=== PATIENT | male | born 1950 | race Caucasian/White ===

== ENCOUNTER 2016-11-18 10:47 | Outpatient (CLI) | payer OTHER ==
--- NOTE | 2016-11-18 14:41 | XRAY Report ---
THREE-VIEW CERVICAL SPINE: 11/18/2016 CLINICAL INDICATION: Neck and back pain. FINDINGS: AP, lateral, odontoid views of the cervical spine demonstrate mild degenerative disk disea se, with small anterior osteophytes. There is no evidence of fracture. The prevertebral soft tissue s are unremarkable. IMPRESSION: MILD DEGENERATIVE DISK DISEASE. JOB #: [id number] EXT JOB #:[id number]
--- NOTE | 2016-11-18 14:50 | XRAY Report ---
THREE-VIEW LUMBAR SPINE: 11/18/2016 CLINICAL INDICATION: Back pain. FINDINGS: AP, lateral, coned-down views of the lumbar spine demonstrate degenerative disk and facet disease. There is partial lumbarization of S1. There is no evidence of acute fracture or subluxatio n. IMPRESSION: DEGENERATIVE DISK DISEASE. :9 JOB #: [id number] EXT JOB #:[id number]
== END 2016-11-18 10:48 | disposition home or self-care (01) ==
LOC: DI.S 10:47
PROVIDERS: ATTEND Chiropractor
DX: M50.30 Other cervical disc degeneration, unspecified cervical region (principal); M51.36 Other intervertebral disc degeneration, lumbar region; M43.06 Spondylolysis, lumbar region; M99.01 Segmental and somatic dysfunction of cervical region; S13.9XXA Sprain of joints and ligaments of unspecified parts of neck, initial encounter
CPT/HCPCS: 72040; 72100

== ENCOUNTER 2019-01-10 07:41 | Outpatient (CLI) | payer OTHER ==
--- NOTE | 2019-01-10 13:07 | XRAY Report ---
Reason: XRAY Procedure Date: 01/10/2019 Accession Number: [id number] / [id number] Procedure: XR - Cervical Spine w/Flex/Ext CPT Code: FULL RESULT: EXAM: CERVICAL SPINE RADIOGRAPHY EXAM DATE: 01/10/2019 08:01 AM. CLINICAL HISTORY: XRAY. COMPARISONS: None. TECHNIQUE: 5 views. FINDINGS: Alignment: There is grade 1 anterior listhesis of C2 on C3 measuring 2 mm in neutral position, 3 mm in flexion and 3 mm in extension. There is grade 1 posterior listhesis of C3 on C4 measuring 3 mm in neutral position no listhesis in flexion and 4 mm of listhesis in extension. Bones: The cervical vertebral bodies and posterior elements are well-visualized from the skull base through C7-T1. No fractures or bone lesions. Disks: Mild degenerative disk disease at C5-C6. Facets: No degenerative disease. Neural Foramina: The neural foramina have bony patency bilaterally. Soft Tissues: Normal. No prevertebral soft tissue swelling. The visualized lung apices are clear. IMPRESSION: 1. There is grade 1 anterior listhesis of C2 on C3 measuring 2 mm in neutral position, 3 mm in flexion and 3 mm in extension. 2. There is grade 1 posterior listhesis of C3 on C4 measuring 3 mm in neutral position no listhesis in flexion and 4 mm of listhesis in extension. 3. Mild degenerative disk disease at C5-C6. [facility]
== END 2019-01-10 07:42 | disposition home or self-care (01) ==
LOC: DI 07:41
PROVIDERS: ATTEND Chiropractor
DX: S13.8XXA Sprain of joints and ligaments of other parts of neck, initial encounter (principal); M99.11 Subluxation complex (vertebral) of cervical region; M99.1 Subluxation complex (vertebral); M50.30 Other cervical disc degeneration, unspecified cervical region
CPT/HCPCS: 72052

== ENCOUNTER 2021-01-26 08:05 | Outpatient (CLI) | payer OTHER ==
[2021-01-26 14:39] LABS: BASOPHILS # (AUTO) 0.1 10^3/uL (0.0-0.1); BASOPHILS % (AUTO) 1.4 %; EOSINOPHILS # (AUTO) 0.3 10^3/uL (0.0-0.7); EOSINOPHILS % (AUTO) 5.8 %; HGB - HEMOGLOBIN 14.7 g/dL (14.0-18.0); LYMPHOCYTES # (AUTO) 1.5 10^3/uL (1.5-3.5); LYMPHOCYTES % (AUTO) 35.2 %; MEAN CORPUSCULAR HEMOGLOBIN 29.6 pg (27.0-31.0); MEAN CORPUSCULAR HGB CONC 32.7 g/dL (32.0-36.0); MEAN CORPUSCULAR VOLUME 90.5 fL (80.0-94.0); MEAN PLATELET VOLUME 9.5 fL (7.4-11.4); MONOCYTES # (AUTO) 0.5 10^3/uL (0.0-1.0); MONOCYTES % (AUTO) 11.8 %; NEUTROPHILS % (AUTO) 45.6 %; PLT - PLATELET COUNT 178 10^3/uL (130-450); RED BLOOD COUNT 4.97 10^6/uL (4.70-6.10); RED CELL DISTRIBUTION WIDTH 12.6 % (12.0-15.0); WHITE BLOOD COUNT 4.3 x10^3/uL (4.8-10.8)
[2021-01-26 15:00] LABS: PSA TOTAL 0.78 ng/mL (0.000-2.000)
[2021-01-26 15:05] LABS: ALBUMIN 4.5 g/dL (3.2-5.5); ALBUMIN/GLOBULIN RATIO 1.7 (1.0-2.2); ALKALINE PHOSPHATASE 42 IU/L (42-121); ALT ALANINE AMINOTRANSFERASE 32 IU/L (10-60); AST ASPARTATE AMINOTRANSFERASE 21 IU/L (10-42); BILIRUBIN,TOTAL 1.1 mg/dL (0.2-1.0); BUN - BLOOD UREA NITROGEN 27 mg/dL (6-20); CALCIUM 9.2 mg/dL (8.5-10.3); CARBON DIOXIDE - CO2 28 mmol/L (21-32); CHLORIDE 102 mmol/L (101-111); CHOLESTEROL 194 mg/dL; CREATININE 0.8 mg/dL (0.6-1.2); CRP HIGH SENSITIVITY 0.9 mg/L; GFR - MDRD 96 (>89); GLUCOSE 179 mg/dL (70-100); HDL CHOLESTEROL 39 mg/dL; LDL CHOLESTEROL,CALCULATED 132 mg/dL; LDL/HDL RATIO 3.4 (<3.6); POTASSIUM 4.2 mmol/L (3.5-5.0); SODIUM 139 mmol/L (135-145); THYROID STIMULATING HORMONE 2.89 uIU/mL (0.34-5.60); TOTAL PROTEIN 7.2 g/dL (6.7-8.2); TRIGLYCERIDES 113 mg/dL; VLDL CHOLESTEROL 23 mg/dL
[2021-01-26 15:08] LABS: FREE T4 (FREE THYROXINE) 0.93 ng/dL (0.58-1.64)
[2021-01-26 20:30] LABS: ESTIMATED AVERAGE GLUCOSE 180 mg/dL (70-100); HEMOGLOBIN A1c% 7.9 % (4.27-6.07)
== END 2021-01-26 08:06 | disposition home or self-care (01) ==
LOC: LAB.S 08:05
PROVIDERS: ATTEND Naprapath
DX: Z00.01 Encounter for general adult medical examination with abnormal findings (principal); Z12.5 Encounter for screening for malignant neoplasm of prostate; Z13.0 Encounter for screening for diseases of the blood and blood-forming organs and certain disorders involving the immune mechanism; Z13.1 Encounter for screening for diabetes mellitus; Z13.21 Encounter for screening for nutritional disorder; Z13.220 Encounter for screening for lipoid disorders; Z13.29 Encounter for screening for other suspected endocrine disorder; Z13.6 Encounter for screening for cardiovascular disorders
CPT/HCPCS: 36415; 80053; 80061; 82306; 83036; 83721; 84153; 84439; 84443; 84480; 85025; 86141